=== PATIENT | male | born 1970 | race Caucasian/White ===

== ENCOUNTER 2021-09-28 09:27 | Emergency (ER) | payer MEDICAID, SELFPAY ==
[2021-09-28 09:48] VITALS: BP 136/87; PULSE 95; RESP 18; TEMP 36.6; O2SAT 99; BMI 25.8
--- NOTE | 2021-09-28 09:54 | HMH.EDUTC ---
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 - Yannick Inquiry Pt receiving controlled substance: No Vital Signs: 09/28/21 09:48 Temperature 98 F Temperature Source Oral Pulse Rate [Left] 95 H Respiratory Rate 18 Blood Pressure [Right Arm] 136/87 Blood Pressure Mean [Right Arm] 103 02 Sat by Pulse Oximetry 99 - Lab Data Lab results reviewed: Yes: I reviewed the patient's lab results. Lab Results 09/28/21 10:20: Group A Strep Rapid Negative Orders (Tests/Meds): ORDERS Category Date Time Status Strep Screen Confirmation Stat Micro 09/28/21 10:20 Received [facility] [place] HPI - General Stated complaint: soa, possible swollen lymph nodes Time Seen by Provider: 09/28/21 09:54 Mode of Arrival: Ambulatory Source of Information: Patient Limitations: No Limitations Description of Symptoms (Recalled from Triage Doc. by RN): pt states he had lymph nodes taken out of his throat in may. pt states he is having pain in his throat and is unable to eat x2 days. pt states the last time this happened he had to have fluid drained. HEENT Symptoms (Recalled from RN notes): Yes Resp Symptoms (Recalled from RN notes): No Skin Symptoms (Recalled from RN notes): No MS Symptoms (Recalled from RN notes): No Functional Status (Recalled from RN notes): wnl - History of Present Illness Provider Complaint: He states that for the past 2 days he has been unable to swallow just about everything. He has not been able to swallow his own saliva at times. But, at times he has been able to swallow some water, but not always. He has a significant history of thyroid cancer. He had his thyroid entirely removed 2 years ago. Around 4 months ago, he had similar symptoms to what he is having now. At this time, he had enlarged lymph nodes in his neck. He had to have the enlarged lymph nodes removed with surgery at that time. He denies any recent fever, chills, body aches, and sore throat. He denies any cough or congestion. - Related Data Home Medications Medication Instructions Recorded Confirmed albuterol sulfate 90 mcg/actuation 1 inh INHALATION QID 12/02/20 12/02/20 aerosol inhaler Allergies Allergy/AdvReac Type Severity Reaction Status Date / Time No Known Allergies Allergy Verified 12/02/20 13:50 - Worker's Comp Is this a Worker's Comp case?: No [facility] History - Hepatitis A Screen Drug use history?: No High risk sexual behaviors?: No History of sexually transmitted infection?: No Currently employed?: No Childcare worker?: No Do you have indoor plumbing?: Yes Do you have electricity?: Yes Attestation statement:: This patient has been screened for Hepatitis A risk factors. I have reviewed the patient's past medical history: Yes Medical History: Reports:: Anxiety, Cancer (thyroid), Chronic Obstructive Pulmonary Disease (COPD) Other Medical History: Reports: Hypothyroidism Other Surgeries: Yes: Cancer Surgery (thyroid), Thyroidectomy Amputation: No Fractures: No - Social History Smoking Status: Current every day smoker Alcohol Intake: never Occupational Status: employed - Psychiatric History Pschychiatric History:: Reports:: Anxiety ROS Obtained: Yes All systems reviewed & no additional complaints - Constitutional Constitutional: Denies chills, Denies fever(s), Reports poor appetite, Reports malaise - Eyes Eyes: Denies eye discharge - ENT Ears, Nose, Mouth, and Throat: Denies dizziness, Denies otalgia, Denies facial pain, Denies headache(s), Denies nasal congestion, Denies nasal
[2021-09-28 10:46] LABS: Strep Scrn Group A (Rapid) Negative (Negative)
[2021-09-28 11:18] VITALS: BP 123/94; PULSE 82; RESP 18; TEMP 36.7; O2SAT 97; BMI 25.8
--- NOTE | 2021-09-28 12:08 | PC.NURSE ---
Pt requested to not wear v/s monitors
--- NOTE | 2021-09-28 12:18 | CT_ITS ---
FINAL REPORT TECHNIQUE: Thin section axial CT images were obtained through the neck after intravenous contrast administration. Coronal and sagittal reformats were also obtained. This study was performed with techniques to keep radiation doses as low as reasonably achievable (ALARA). Individualized dose reduction techniques using automated exposure control or adjustment of mA and/or kV according to the patient''s size were employed. CLINICAL HISTORY: dysphagia, history of thyroid cancer FINDINGS: The nasopharynx, oropharynx, hypopharynx and larynx are unremarkable. There are postoperative changes from thyroidectomy. There are also postoperative changes from presumed left neck dissection. There is a cystic mass in the left neck measuring 27 x 22 mm in maximum axial dimension, may represent cystic or necrotic adenopathy, seroma, or chronic hematoma. Multiple other smaller nodes are seen but without evidence of adenopathy. There are small calcifications in the lower neck of uncertain etiology, could represent postoperative change or calcified nodes. Note is made of mild emphysema. The visualized sinuses are clear. There is no acute osseous abnormality. IMPRESSION: Postsurgical changes as detailed above. Cystic mass in the left neck, may represent cystic or necrotic adenopathy, seroma, or chronic hematoma. Reviewed, Interpreted and Dictated by Terrance Love III, MD Transcribed by Noa Grey Authenticated by Terrance Love III, MD on 09/28/2021 02:06:12 PM [facility]
--- NOTE | 2021-09-28 12:33 | PC.NURSE ---
rad notified of Ct order
[2021-09-28 13:00] LABS: Basophils # 0.1 K/mm3 (0-0.2); Basophils % 0.8 % (0.1-2.0); Eosinophils % 0.5 % (0.1-12.0); Lymphocytes # 0.9 K/mm3 (0.7-4.5); Lymphocytes % 10.6 % (10-50); Mean Corpuscular HGB Conc 34.7 g/dL (31.8-35.4); Mean Corpuscular Hemoglobin 30.9 pg (27.0-31.2); Mean Corpuscular Volume 89.2 fl (80-94); Mean Platelet Volume 7.3 fl (7.4-10.4); Monocytes # 0.8 K/mm3 (0.1-1.0); Monocytes % 9.9 % (1.7-9.3); Neutrophils # 6.5 K/mm3 (1.8-7.8); Neutrophils % 78.2 % (37.0-80.0); Platelet Count 284 K/mm3 (142-424); Red Cell Distribution Width 13.7 % (11.5-17.5); White Blood Count 8.3 K/mm3 (4.8-10.8)
[2021-09-28 13:01] LABS: Chloride 101 mmol/L (98-107); Potassium 4.6 mmoL/L (3.5-5.1); Sodium 134 mmol/L (136-145)
[2021-09-28 13:04] LABS: Anion Gap 13.6 mEq/L (5-15); Blood Urea Nitrogen 17 mg/dl (9-20); Calcium 9.6 mg/dl (8.4-10.2); Carbon Dioxide 24 mmol/L (22.0-30.0); Creatinine Clearance Estimated 83 mL/min (50-200); Estimated Glomerular Filt Rate 64 ml/min (>60); GFR (African American) 77 ML/MIN (>60); Glucose 89 mg/dl (74-100)
[2021-09-28 13:10] LABS: Hemoglobin 20.1 g/dL (14.1-18.0)
--- NOTE | 2021-09-28 14:05 | HMH.EDGENADL ---
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 Please also follow-up with your oncology team soon as possible given your worsening symptoms with swallowing. Referrals: Provider,Referral, [Primary Care Provider] - - Critical Care Critical Care Time: No Attestation: On 09/28/21, the high probability of a clinically significant, sudden or life threatening deterioration of the following system(s) required my full and direct attention, intervention and personal management. The time I documented below is in addition to time spent performing reported procedures but includes the following listed in this critical care notation. Medical Decision Making - Yannick Inquiry Pt receiving controlled substance: No Vital Signs: 09/28/21 09:48 09/28/21 11:18 Temperature 98 F 98.0 F Temperature Source Oral Oral Pulse Rate [Left] 95 H 82 Respiratory Rate 18 18 Blood Pressure [Right Arm] 136/87 123/94 H Blood Pressure Mean [Right Arm] 103 103 Blood Pressure Source [Right Arm] Automatic Cuff Blood Pressure Position [Right Arm] Sitting 02 Sat by Pulse Oximetry 99 97 Oxygen Delivery Method Room Air - Lab Data Lab Results 09/28/21 10:20: Group A Strep Rapid Negative 09/28/21 12:27: WBC 8.3, RBC 6.50 H, Hgb 20.1 H, Hct 58.0 H, MCV 89.2, MCH 30.9, MCHC 34.7, RDW 13.7, Plt Count 284, MPV 7.3 L, Neut % (Auto) 78.2, Lymph % (Auto) 10.6, Crisp % (Auto) 9.9 H, Eos % (Auto) 0.5, Baso % (Auto) 0.8, Neut # (Auto) 6.5, Lymph # (Auto) 0.9, Crisp # (Auto) 0.8, Eos # (Auto) 0.0, Baso # (Auto) 0.1 09/28/21 12:27: Sodium 134 L, Potassium 4.6, Chloride 101, Carbon Dioxide 24, Anion Gap 13.6, BUN 17, Creatinine 1.20, Estimated Creat Clear 83, Estimated GFR 64, Est GFR ( Amer) 77, Glucose 89, Calcium 9.6 Result diagrams: 09/28/21 12:27 09/28/21 12:27 Orders (Tests/Meds): ED MEDICATIONS Discontinued Medications Generic Name Dose Route Start Last Admin Trade Name Freq PRN Reason Stop Dose Admin Iopamidol 75 ml 09/28/21 13:21 09/28/21 13:22 Iopamidol-370 (76%);100ml Bottle IV 09/28/21 13:22 75 ml ONCE ONE Administration Sodium Chloride 10 ml 09/28/21 13:21 09/28/21 13:22 Sodium Chloride 0.9% 10ml Syr (Rad Only) IV 09/28/21 13:22 10 ml ONCE ONE Administration ORDERS Category Date Time Status Strep Screen Confirmation Stat Micro 09/28/21 10:20 Received Medical Decision Narrative: 50-year-old male presents emergency department with dysphagia over the past several days stating that he has had history of thyroid cancer as well as lymph node dissection and is concerned that his cancer could be back. Patient is requesting CT of the neck. CBC and metabolic panel performed in the emergency department significant for elevated hemoglobin of 20, significance of this is unknown, but does not appear to be due to hemoconcentration given other values not significantly elevated. Patient was informed of this and told to follow-up with his primary care physician soon for recheck. Patient requesting discharge from the emergency department prior to result of CT of the neck, understanding that results could be acutely or subacutely actionable. Patient was instructed to follow-up with his primary care physician and oncology team, with patient understanding this. Patient able to be discharged
[2021-09-28 14:18] VITALS: BP 128/84; PULSE 80; RESP 17; TEMP 36.6; O2SAT 98
--- NOTE | 2021-09-28 14:20 | PC.NURSE ---
contacted radiology for disc for pt to take with him for follow up ER at reviewing CT scan with Pt
== END 2021-09-28 14:18 | disposition home or self-care (01) ==
LOC: UTC 09:31 → ER 10:53
PROVIDERS: Nurse Practitioner Family; Emergency Provider Student in an Organized Health Care Education/Training Program
DX: R13.10 Dysphagia, unspecified (principal); Z85.850 Personal history of malignant neoplasm of thyroid; Z85.89 Personal history of malignant neoplasm of other organs and systems; J44.9 Chronic obstructive pulmonary disease, unspecified; E03.9 Hypothyroidism, unspecified; F41.9 Anxiety disorder, unspecified; F17.210 Nicotine dependence, cigarettes, uncomplicated; Z79.899 Other long term (current) drug therapy
CPT/HCPCS: 70491; 80048; 85025; 87430; 99283; Q9967